=== PATIENT | male | born 1995 | race Caucasian/White ===

== ENCOUNTER 2022-12-04 17:33 | Emergency (ER) | payer MEDICAID ==
[~2022-12-04] VITALS: Ht 172.7 cm; Wt 90.1 kg
[2022-12-04 17:44] VITALS: BP 118/70
[2022-12-04] MEDS ORDERED: MAALOX PLUS or MAALOX 30 ML PO ONE (18:30)
[2022-12-04] MEDS ORDERED: LIDOCAINE VISCOUS 2% 15ML UD PO ONE (18:30)
[2022-12-04 18:33] LABS: BUN/Creatinine Ratio 13.6 (10.0-20.0); Calcium 8.4 mg/dL (8.5-10.1); Potassium 3.7 mmol/L (3.5-5.1)
[2022-12-04 18:35] LABS: Bilirubin, Total 0.4 mg/dL (0.2-1.0); Total Protein 7.4 g/dL (6.4-8.2)
[2022-12-04 18:36] LABS: Basophils # (auto) 0.1 10 ^3/uL (0-0.2); Basophils % (auto) 1.2 % (0.0-2.0); Eosinophils # (auto) 0.3 10 ^3/uL (0-0.8); Eosinophils % (auto) 3.3 % (0.0-7.0); Hematocrit 46.6 % (41.0-53.0); Hemoglobin 15.2 g/dL (13.5-17.5); Lymphocytes # (auto) 1.9 10 ^3/uL (0.4-5.4); Lymphocytes % (auto) 21.7 % (10.0-50.0); Mean Corpuscular Hemoglobin 31.5 pg (28.0-32.0); Mean Corpuscular Hgb Conc. 32.7 g/dL (32.0-36.0); Mean Corpuscular Volume 96.2 fL (80.0-100.0); Monocytes # (auto) 0.5 10 ^3/uL (0-1.3); Monocytes % (auto) 5.8 % (0.0-12.0); Neutrophils # (auto) 5.8 10 ^3/uL (1.6-8.6); Red Blood Cells 4.84 10^6/uL (4.5-5.90); Red Cell Distribution Width 13.1 % (11.8-14.3); White Blood Cell 8.6 10^3/uL (4.4-10.8)
[2022-12-04 18:58] LABS: Urine Amorphous Crystal FEW /hpf (None Seen); Urine Bacteria NONE SEEN /hpf (None Seen); Urine Blood Negative /uL (Negative); Urine Mucus FEW (None Seen); Urine Specific Gravity 1.027 (1.001-1.035); Urine WBC 42 /hpf (0 - 3)
[2022-12-04] MEDS ORDERED: OMEP-448 PO (19:06)
[2022-12-04 20:12] LABS: Amphetamine Screen, Urine NEGATIVE (NEGATIVE); Barbiturate Scree,Urine NEGATIVE (NEGATIVE); Benzodiazephine Screen, Urine NEGATIVE (NEGATIVE); Cannabinoid Screen, Urine POSITIVE (NEGATIVE); Cocaine Screen, Urine NEGATIVE (NEGATIVE)
[2022-12-04 20:20] LABS: Opiate Scree,Urine NEGATIVE (NEGATIVE); Phencyclidine Screen, Urine NEGATIVE (NEGATIVE)
[2022-12-04 20:26] LABS: Alcohol, Urine < 3.0 mg/dL (0-10)
== END 2022-12-04 19:37 | disposition home or self-care (01) ==
LOC: ER 17:33
DX: K29.70 Gastritis, unspecified, without bleeding (principal); F17.210 Nicotine dependence, cigarettes, uncomplicated; F12.10 Cannabis abuse, uncomplicated; Z79.899 Other long term (current) drug therapy
CPT/HCPCS: 36415; 74176; 80053; 80307; 81001; 83690; 85025

== ENCOUNTER 2023-10-19 13:52 | Emergency (ER) | payer MEDICAID ==
[~2023-10-19] VITALS: Ht 172.7 cm; Wt 94.0 kg
[~2023-10-19 13:52] MED LIST: IBUP-1455 PO; OMEP-448 PO
[2023-10-19 15:01] VITALS: BP 128/85; PULSE 95; RESP 12; O2SAT 99
== END 2023-10-19 15:11 | disposition left against medical advice (07) ==
LOC: ER 13:52
DX: S09.8XXA Other specified injuries of head, initial encounter (principal); Z53.21 Procedure and treatment not carried out due to patient leaving prior to being seen by health care provider; W26.8XXA Contact with other sharp object(s), not elsewhere classified, initial encounter; Y93.89 Activity, other specified; Y92.89 Other specified places as the place of occurrence of the external cause; Y99.8 Other external cause status

== ENCOUNTER 2024-12-21 11:20 | Emergency (ER) | payer MEDICAID | END 2024-12-21 12:09 | disposition left against medical advice (07) | LOC: ER 11:20 | DX: T14.90XA Injury, unspecified, initial encounter (principal); Z53.21 Procedure and treatment not carried out due to patient leaving prior to being seen by health care provider; W19.XXXA Unspecified fall, initial encounter; Y93.89 Activity, other specified; Y92.89 Other specified places as the place of occurrence of the external cause; Y99.8 Other external cause status ==